=== PATIENT | female | born 1975 | race Caucasian/White ===

== ENCOUNTER 2018-12-07 07:47 | Day surgery (SDC) | payer OTHER ==
[2018-12-07] MEDS: ACETAMINOPHEN 325 MG TAB PO (09:01)
[2018-12-07 09:05] LABS: ADD MAN DIFF? NO
[2018-12-07 09:06] LABS: BASOPHILS % 0.5 % (0.0-2.0); EOSINOPHILS # 0.2 10^3/ul (0.0-0.5); EOSINOPHILS % 3.9 % (0.0-7.0); HEMATOCRIT 37.7 % (37.0-47.0); HEMOGLOBIN 12.2 g/dl (12.0-16.0); LYMPHOCYTES # 1.7 10^3/ul (0.8-2.9); LYMPHOCYTES % 29.6 % (15.0-51.0); MEAN CORPUSCULAR HEMOGLOBIN 27.1 pg (29.0-33.0); MEAN CORPUSCULAR HGB CONC 32.4 g/dl (32.0-37.0); MEAN CORPUSCULAR VOLUME 83.8 fl (82.0-101.0); MEAN PLATELET VOLUME 10.3 fl (7.4-10.4); MONOCYTE # 0.6 10^3/ul (0.3-0.9); MONOCYTES % 10.4 % (0.0-11.0); NEUTROPHIL # 3.1 10^3/ul (1.6-7.5); NEUTROPHILS % 55.4 % (39.0-77.0); PLATELET COUNT 282 10^3/UL (140-415); RED CELL DISTRIBUTION WIDTH 13.5 % (11.5-14.5)
[2018-12-07 09:06] LABS: WHITE BLOOD COUNT 5.6 10^3/ul (4.8-10.8)
[2018-12-07 09:16] LABS: ADD UMIC YES; UR ASCORBIC ACID 20 mg/dL (NEGATIVE); UR BACTERIA FEW /HPF (NONE SEEN); UR BILIRUBIN (Dip) NEGATIVE (NEGATIVE); UR BLOOD (Dip) NEGATIVE (NEGATIVE); UR CLARITY CLOUDY (CLEAR); UR COLOR YELLOW (YELLOW); UR GLUCOSE (Dip) NEGATIVE (NEGATIVE); UR KETONES (Dip) NEGATIVE (NEGATIVE); UR LEUKOCYTE ESTERASE (Dip) NEGATIVE Leu/ul (NEGATIVE); UR MUCUS FEW /HPF (NONE SEEN); UR NITRITE (Dip) POSITIVE (NEGATIVE); UR RBC 1 /HPF (0-5); UR SPECIFIC GRAVITY (Dip) 1.019 (1.003-1.030); UR SQUAMOUS EPITHELIAL CELL MODERATE /HPF (FEW); UR TOTAL PROTEIN (Dip) NEGATIVE (NEGATIVE); UR UROBILINOGEN (Dip) NEGATIVE (NEGATIVE); UR WBC 9 /HPF (0-5)
[2018-12-07 09:26] LABS: INR 0.92; PARTIAL THROMBOPLASTIN TIME 26.4 Sec (23.0-35.0); PROTIME 12.5 Sec (11.9-14.9)
[2018-12-07 09:28] LABS: ALANINE AMINOTRANSFERASE 14 IU/L (13-69); ALBUMIN 4.3 g/dl (3.3-4.9); ALBUMIN/GLOBULIN RATIO 1.43; ALKALINE PHOSPHATASE 63 IU/L (42-121); ANION GAP 11 (5-13); ASPARTATE AMINO TRANSFERASE 15 IU/L (15-46); BILIRUBIN,INDIRECT 0.5 mg/dl (0-1.1); BILIRUBIN,TOTAL 0.5 mg/dl (0.2-1.3); BLOOD UREA NITROGEN 10 mg/dl (7-20); CALCIUM 9.2 mg/dl (8.4-10.2); CARBON DIOXIDE 26 mmol/L (21-31); CHLORIDE 108 mmol/L (97-110); CREATININE 0.72 mg/dl (0.44-1.00); Estimated GFR > 60 mL/min (>60); GLUCOSE 96 mg/dl (70-220); POTASSIUM 4.2 mmol/L (3.5-5.1); SODIUM 145 mmol/L (135-144); TOTAL PROTEIN 7.3 g/dl (6.1-8.1)
[2018-12-07] MEDS ORDERED: ACETAMINOPHEN 325 MG TAB PO (14:30)
[2018-12-07] MEDS ORDERED: LIDOCAINE 100 MG SYRINGE (16:44)
[2018-12-07] MEDS ORDERED: MIDAZOLAM 1 MG/ML 2 ML INJ (16:44)
[2018-12-07] MEDS ORDERED: CEFAZOLIN 1 GM INJ (16:44)
[2018-12-07] MEDS ORDERED: SUCCINYLCHOLINE CHLORIDE 100 MG/5 ML SYG IV (16:44)
[2018-12-07] MEDS ORDERED: PROPOFOL 20 ML (16:44)
[2018-12-07] MEDS ORDERED: FENTAnyl 50 MCG/ML VIAL (16:45)
[2018-12-07] MEDS ORDERED: ONDANSETRON 4 MG INJ (16:45)
[2018-12-07] MEDS ORDERED: SUGAMMADEX SODIUM 200 MG/2 ML VIAL IV (16:45)
[2018-12-07] MEDS ORDERED: DEXAMETHASONE 4 MG/ML 5 ML INJ (16:45)
[2018-12-07] MEDS ORDERED: ONDANSETRON 4 MG INJ IV (17:00)
[2018-12-07] MEDS ORDERED: METOCLOPRAMIDE 10 MG INJ IV (17:00)
[2018-12-07] MEDS ORDERED: HYDROmorphONE 1 MG/5 ML IV SYRINGE IV ×2 (17:00)
[2018-12-07] MEDS ORDERED: FENTAnyl 50 MCG/ML VIAL IV ×2 (17:00)
[2018-12-07] MEDS ORDERED: LABETALOL HCL 20MG INJ IV (17:00)
[2018-12-07] MEDS ORDERED: hydrALAzine 20 MG INJ IV (17:00)
[2018-12-07] MEDS ORDERED: MEPERIDINE 25 MG INJ IV (17:00)
[2018-12-07] MEDS: SILVER NITRATE SWAB (17:48)
[2018-12-07] MEDS ORDERED: SILVER NITRATE SWAB (18:10)
[2018-12-07] MEDS ORDERED: HYDROCODONE/APAP (5/325) TAB PO (18:30)
[2018-12-07] MEDS: ONDANSETRON 4 MG INJ IV (19:23)
== END 2018-12-07 19:40 | disposition home or self-care (01) ==
LOC: FTE 07:47 → REC 14:11 → SDS 16:40
DX: O02.0 Blighted ovum and nonhydatidiform mole (principal)
CPT/HCPCS: 36415; 76801; 76817; 80053; 81001; 84702; 85025; 85610; 85730; 86900; 86901; 88305; 99285-25